=== PATIENT | male | born 1985 | race Caucasian/White ===

== ENCOUNTER 2020-09-21 15:30 | Emergency (ER) | payer OTHER ==
[2020-09-21 15:42] VITALS: BP 115/71; PULSE 60; TEMP 99; BMI 25.8
[2020-09-21] MEDS ORDERED: DIPHTH,PERTUSS(ACELL),TET 0.5 ML DISP.SYRIN IM ONE ×2 (16:08→16:10)
== END 2020-09-21 17:35 | disposition home or self-care (01) ==
LOC: FER 15:30
PROC: 3E0234Z Introduction of Serum, Toxoid and Vaccine into Muscle, Percutaneous Approach (ICD-10-PCS; principal; 2020-09-21)
DX: S61.209A Unspecified open wound of unspecified finger without damage to nail, initial encounter (principal)
CPT/HCPCS: 90715; 99284-25

== ENCOUNTER 2023-01-10 13:48 | Emergency (ER) | payer SELFPAY ==
[2023-01-10 14:04] VITALS: BMI 27.4
[2023-01-10] MEDS ORDERED: ASPIRIN 81 MG CHEWABLE TABLETS PO ONE (14:49)
[2023-01-10] MEDS ORDERED: ASPIRIN 81 MG CHEWABLE TABLETS ONE (15:04)
[2023-01-10] MEDS ORDERED: ACETAMINOPHEN 325 MG TABLET (FP) PO ONE (15:05)
[2023-01-10] MEDS ORDERED: ACETAMINOPHEN 325 MG TABLET (FP) ONE (15:05)
[2023-01-10 15:28] LABS: BASO % 0.3 % (0-2.0); EOS % 1.3 % (0-4.5); HEMATOCRIT 44.2 % (35.4-49); HEMOGLOBIN 15.3 GM/dL (11.7-16.9); LYMPH % 5.1 % (8-40); MCH 29.7 pg (25.7-33.7); MCHC 34.6 g/dl (32.0-35.9); MEAN CELL VOLUME 85.7 fl (80-96); MEAN PLT VOLUME 9.4 fl (7.5-11.1); MONO % 6.4 % (3.8-10.2); NEUT % 86.9 % (42.8-82.8); PLATELET COUNT 187 10^3/uL (134-434); RBC 5.15 M/mm3 (4.00-5.60); RDW 14.4 % (11.9-15.9); WHITE BLOOD COUNT 6.8 K/mm3 (4.0-10.0)
[2023-01-10 15:37] LABS: INR 1.08 (0.83-1.09); PROTHROMBIN TIME (PATIENT) 12.5 SEC (9.7-13.0)
[2023-01-10 15:39] LABS: ACTIVATED PTT 30.3 SECONDS (25.2-36.5)
[2023-01-10 15:46] LABS: CHLORIDE 105 mmol/L (98-107); POTASSIUM 4.2 mmol/L (3.5-5.1); SODIUM 139 mmol/L (136-145)
[2023-01-10 15:48] LABS: CALCIUM 8.9 mg/dL (8.5-10.1)
[2023-01-10 15:49] LABS: ALBUMIN 4.1 g/dl (3.4-5.0); ANION GAP 8 MMOL/L (8-16); BLOOD UREA NITROGEN 15.5 mg/dL (7-18); CO2 27 mmol/L (21-32); GLUCOSE,RANDOM 108 mg/dL (74-106); MAGNESIUM 2.2 mg/dL (1.8-2.4)
[2023-01-10 15:52] LABS: SGOT/AST 23 U/L (15-37); SGPT/ALT 69 U/L (13-61)
[2023-01-10 15:53] LABS: BILIRUBIN,TOTAL 1.6 mg/dL (0.2-1)
[2023-01-10 15:54] LABS: TOT PROT 7.4 g/dl (6.4-8.2)
[2023-01-10 15:55] LABS: ALK PHOS 88 U/L (45-117)
[2023-01-10] MEDS ORDERED: KETOROLAC TROMETHAMINE 15 MG/ML VIAL IVPUSH ONE (16:07)
[2023-01-10] MEDS ORDERED: KETOROLAC TROMETHAMINE 30 MG/1 ML VIAL ONE (16:16)
[2023-01-10 16:38] VITALS: BP 106/67; PULSE 90; RESP 18; TEMP 99
== END 2023-01-10 17:03 | disposition home or self-care (01) ==
LOC: JER 13:48
PROC: 3E033NZ Introduction of Analgesics, Hypnotics, Sedatives into Peripheral Vein, Percutaneous Approach (ICD-10-PCS; principal; 2023-01-10)
DX: R07.9 Chest pain, unspecified (principal); J02.9 Acute pharyngitis, unspecified
CPT/HCPCS: 0241U-QW; 36415; 71046-TC-FY; 80053; 82550; 82553; 83735; 84484; 85025; 85610; 85730; 93005; 93010; 99285-25